=== PATIENT | male | born 1965 | race Caucasian/White ===

== ENCOUNTER 2017-04-04 13:51 | Emergency (ER) | payer OTHER ==
[2017-04-04] MEDS ORDERED: Sodium Chloride 0.9% 2.5 ML Syringe FLUSH PRN (13:53)
[2017-04-04] MEDS ORDERED: Sodium Chloride 0.9% 10 ML Syringe FLUSH PRN (13:53)
[2017-04-04] MEDS ORDERED: Sodium Chloride 0.9% 1,000 ML IV ONE (14:32)
--- NOTE | 2017-04-04 14:45 | EDM.PDOC ---
ED HPI GENERAL MEDICAL PROBLEM - General Chief Complaint: Neuro Symptoms/Deficits Stated Complaint: BLURRY VISION Time Seen by Provider: 04/04/17 13:53 Source of Information: Reports: Patient History Limitations: Reports: No Limitations - History of Present Illness INITIAL COMMENTS - FREE TEXT/NARRATIVE: History of present illness: [51-year-old male comes in complaining of transient feelings of dizziness and blurry vision. Patient has a protracted history of hypertension and at one juncture a brain bleed. Patient acknowledges that he does not feel that the concern he feels that he usual increase in caffeine intake and his elevated blood pressure is to blame. With protracted discussion with patient patient indicated that he felt washing out the caffeine and giving him something to bring his blood pressure down to a sufficient to make him feel better. Patient denies blurry vision at this time and/or headache. Patient denies any loss of consciousness and/or nausea and vomiting.] Review of systems: As per history of present illness and below otherwise all systems reviewed and negative. Past medical history: As per history of present illness and as reviewed below otherwise noncontributory. Surgical history: As per history of present illness and as reviewed below otherwise noncontributory. Social history: No reported history of drug or alcohol abuse. Family history: As per history of present illness and as reviewed below otherwise noncontributory. Physical exam: HEENT: Atraumatic, normocephalic, pupils reactive, negative for conjunctival pallor or scleral icterus, mucous membranes moist, throat clear, neck supple, nontender, trachea midline. Lungs: Clear to auscultation, breath sounds equal bilaterally, chest nontender. Heart: S1S2, regular, negative for clicks, rubs, or JVD. Abdomen: Soft, nondistended, nontender. Negative for masses or hepatosplenomegaly. Negative for costovertebral tenderness. Pelvis: Stable nontender. Genitourinary: Deferred. Rectal: Deferred. Extremities: Atraumatic, negative for cords or calf pain. Neurovascular unremarkable. Neuro: Awake, alert, oriented. Cranial nerves II through XII unremarkable. Cerebellum unremarkable. Motor and sensory unremarkable throughout. Exam nonfocal. Global assessment is benign save the subjective complaint of transient blurry vision and dizziness the patient had earlier today. Patient was offered an inpatient admission for observation due to protracted history of brain bleed, hypertension and this new blurry vision and dizziness. Patient indicated he felt that the problem was a transient issue secondary to increased caffeine consumption and fatigue from excessive traveling and "overdoing it" Diagnostics: [] Therapeutics: [Liter of IV fluid, Lopressor ] Impression: [Hypertension] Plan: [Up with primary care provider] Definitive disposition and diagnosis as appropriate pending reevaluation and review of above. - Related Data Allergies Allergy/AdvReac Type Severity Reaction Status Date / Time No Known Allergies Allergy Verified 04/04/17 13:59 Home Meds: Home Meds Fenofibric Acid (Choline) [Fenofibric Acid] 1 cap PO TID 08/10/15 [History] Olmesartan [Benicar] 1 tab PO DAILY 08/10/15 [History] amLODIPine [Norvasc] 1 tab PO DAILY 08/10/15 [History] Past Medical History Cardiovascular History: Reports: Afib, High Cholesterol, Hypertension Respiratory History: Reports: None Musculoskeletal History: Reports: Gout Neurological History: Reports: CVA Psychiatric History: Reports: PTSD Hematologic History: Reports: None Dermatologic History: Reports: None - Infectious Disease History Infectious Disease History: Reports: Chicken Pox - Past Surgical History Cardiovascular Surgical History: Reports: Other (See Below) Social & Family History - Family History Family Medical History: Noncontributory Cardiac: Reports: Afib Respiratory: Reports: None Psychiatric: Reports: None - Tobacco Use Smoking Status *Q: Never Smoker - Recreational Drug Use Recreational Drug Use: No ED ROS GENERAL - Review of Systems Review Of Systems: See Below (See history of present illness) ED EXAM, GENERAL - Physical Exam Exam: See Below (See history of present illness) Course - Vital Signs Last Recorded V/S: Last Vital Signs Temp 36.1 C 04/04/17 14:00 Pulse 71 04/04/17 14:00 Resp 20 04/04/17 14:00 BP 145/88 H 04/04/17 15:45 Pulse Ox 97 04/04/17 14:00 - Orders/Labs/Meds Orders: Active Orders 24 hr Category Date Time Status Cardiac Monitoring [RC] . DIRECTED Care 04/04/17 13:53 Active Communication Order [RC] STAT Care 04/04/17 13:54 Inactive EKG Documentation Completion [RC] STAT Care 04/04/17 13:53 Active Oxygen Therapy, ED [RC] ASDIRECTED Care 04/04/17 13:53 Active Pulse Oximetry [RC] ASDIRECTED Care 04/04/17 13:53 Active Saline Lock Insert [OM.PC] Stat Oth 04/04/17 14:22 Ordered Meds: Medications Discontinued Medications Generic Name Dose Route Start Last Admin Trade Name Freq PRN Reason Stop Dose Admin Sodium Chloride 1,000 mls @ 999 mls/hr 04/04/17 14:32 04/04/17 14:33 Normal Saline IV 04/04/17 15:32 999 mls/hr STAT ONE Administration Metoprolol Tartrate 5 mg 04/04/17 15:00 04/04/17 15:45 Lopressor IVPUSH 04/04/17 15:01 Not Given ONETIME ONE Sodium Chloride 10 ml 04/04/17 13:53 Saline Flush FLUSH ASDIRECTED PRN Keep Vein Open Sodium Chloride 2.5 ml 04/04/17 13:53 Saline Flush FLUSH ASDIRECTED PRN Keep Vein Open Departure - Departure Time of Disposition: 15:32 Disposition: Home, Self-Care 01 Condition: Good Clinical Impression: Hypertension, Dizziness - Discharge Information Referrals: PCP,Unknown [Primary Care Provider] - Forms: ED Department Discharge Additional Instructions: The following information is given to patients seen in the emergency department who are being discharged to home. This information is to outline your options for follow-up care. We provide all patients seen in our emergency department with a follow-up referral. The need for follow-up, as well as the timing and circumstances, are variable depending upon the specifics of your emergency department visit. If you don't have a primary care physician on staff, we will provide you with a referral. We always advise you to contact your personal physician following an emergency department visit to inform them of the circumstance of the visit and for follow-up with them and/or the need for any referrals to a consulting specialist. The emergency department will also refer you to a specialist when appropriate. This referral assures that you have the opportunity for follow-up care with a specialist. All of these measure are taken in an effort to provide you with optimal care, which includes your follow-up. Under all circumstances we always encourage you to contact your private physician who remains a resource for coordinating your care. When calling for follow-up care, please make the office aware that this follow-up is from your recent emergency room visit. If for any reason you are refused follow-up, please contact the [facility] Emergency Department at and asked to speak to the emergency department charge nurse. Take medication as per your usual routine Avoid increased caffeine intake as discussed Follow-up with primary care provider in 1-2 days Return to ER as needed as discussed - My Orders Last 24 Hours: My Active Orders 04/04/17 14:22 Saline Lock Insert [OM.PC] Stat - Assessment/Plan Last 24 Hours: My Active Orders 04/04/17 14:22 Saline Lock Insert [OM.PC] Stat
[2017-04-04] MEDS ORDERED: Metoprolol Tartrate 5 MG/5 ML SDV IVPUSH ONE (15:00)
[2017-04-04 19:11] VITALS: BP 149/91
== END 2017-04-04 16:14 | disposition home or self-care (01) ==
LOC: MW.ED 13:51
DX: I10 Essential (primary) hypertension (principal); E78.00 Pure hypercholesterolemia, unspecified; Z79.899 Other long term (current) drug therapy
CPT/HCPCS: 96360; 99283; J7040; 93005; 99284

== ENCOUNTER 2018-07-10 20:07 | Emergency (ER) | payer OTHER ==
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
[2018-07-10] MEDS ORDERED: Bacitracin Oint 1 GM U/D Packet TOP ONE (20:57)
[2018-07-10 21:08] VITALS: BP 134/90
== END 2018-07-10 21:11 | disposition home or self-care (01) ==
LOC: MW.ED 20:07
DX: S81.012A Laceration without foreign body, left knee, initial encounter (principal); I48.91 Unspecified atrial fibrillation; I10 Essential (primary) hypertension; E78.00 Pure hypercholesterolemia, unspecified; Z88.8 Allergy status to other drugs, medicaments and biological substances; Z79.899 Other long term (current) drug therapy; Z86.73 Personal history of transient ischemic attack (TIA), and cerebral infarction without residual deficits; V19.3XXA Pedal cyclist (driver) (passenger) injured in unspecified nontraffic accident, initial encounter
CPT/HCPCS: 12002; 99282